=== PATIENT | male | born 1985 | race Caucasian/White ===

== ENCOUNTER → 2016-04-22 | Outpatient (CLI) | payer BC ==
--- NOTE | 2016-04-22 10:45 | DIAGNOSTIC IMAGING REPORT ---
RENAL ULTRASOUND HISTORY: Flank pain HEMATURIA COMPARISON: None. FINDINGS: Right kidney: Maximum dimension 11.1 cm. Normal corticomedullary differentiation and cortical thickness. Left kidney: Maximum dimension 12.3 cm. Normal corticomedullary differentiation and cortical thickness. Bladder: No bladder wall thickening. The bilateral ureteral jets were identified. IMPRESSION: Normal renal ultrasound. Electronically signed by: Teo Terrell M.D. 04/22/2016 10:43 AM Dictated Date/Time: 04/22/2016 10:43 AM
== END | disposition home or self-care (01) ==
LOC: C.ULTR 09:28
PROVIDERS: ATTEND Family Medicine
DX: R31.21 Asymptomatic microscopic hematuria (principal)

== ENCOUNTER 2016-07-20 16:39 | Emergency (ER) | payer BC ==
[~2016-07-20] VITALS: Ht 175.3 cm; Wt 111.4 kg
[2016-07-20 16:44] VITALS: TEMP 36.6; Ht 175.3 cm; Wt 111.4 kg
--- NOTE | 2016-07-20 19:36 | DIAGNOSTIC IMAGING REPORT ---
RIGHT LOWER EXTREMITY VENOUS DOPPLER HISTORY: R calf pain; pt concerned for DVT due to family hx Right COMPARISON STUDY: None. FINDINGS: There is normal compressibility, flow, and augmentation within the right lower extremity deep venous system. IMPRESSION: No DVT within the right lower extremity Electronically signed by: Garrison Woodall M.D. 07/20/2016 7:35 PM Dictated Date/Time: 07/20/2016 7:34 PM
[2016-07-20 19:51] VITALS: BP 139/81; PULSE 74; O2SAT 97
--- NOTE | 2016-07-21 11:00 | EMERGENCY ROOM VISIT NOTE ---
ED Visit Note First contact with patient: 16:50 Chief Complaint: Right calf pain. History of Present Illness: Mr. Long is a 31-year-old white male who ambulates into the ED complaining of right calf pain. Patient reports yesterday he was walking and developed calf pain over the lateral aspect of the gastrocnemius near the insertion of the Achilles tendon. He noted this most prominently while climbing a hill. When he went home he reports the pain resolved. When he was at home this morning playing using his computer the pain returned. He attempted to go out for walk and the pain became severe. Currently he describes his pain as a sharp sensation. He rates his discomfort 6 /10. The pain is nonradiating. The pain worsens with palpation and ambulation. He has not identified any alleviating factors related to the pain. He has not taken any medications for pain prior to arrival at the hospital. He denies any associated fevers, chills, sweats, trauma to this area, recent surgery/inactivity/extended travel, previous clots, claudication, chest pain, palpitations, shortness of breath. He does report that he has multiple family members that have DVTs and expresses concerns about a DVT. Review of Systems: As noted above in history of present illness. 8 body systems were reviewed and found to be negative as noted above. Past Medical History: Patient denies. Current Medications: Patient denies. Allergies to Medications: Patient denies. Social History: Patient is currently employed; he feels safe in his home environment; he denies tobacco use; he admits to alcohol use. Physical Examination: Vital Signs: Date Time Temp Pulse Resp B/P Pulse Ox O2 Delivery O2 Flow Rate FiO2 07/20/16 19:51 74 20 139/81 97 Room Air 07/20/16 19:00 81 18 138/79 96 Room Air 07/20/16 16:44 36.6 78 20 147/89 94 Room Air GENERAL: 31-year-old male in mild distress due to pain, nontoxic-appearing, afebrile and hemodynamically stable. NEUROLOGICAL: Awake, alert and oriented to person, place and time. Answering questions appropriately and following commands. Normal gait. Good hand eye coordination. No focal motor sensory deficits. SKIN: Warm, dry and pink. No soft tissue eruptions or trauma noted. THORAX: Lungs sounds are clear to auscultation and equal bilaterally with symmetrical chest wall. No crepitus, tenderness, subcutaneous air or deformities noted. HEART: Regular rate and rhythm. No gallops, rubs or murmurs are appreciated. ABDOMEN: Flat, soft and nontender. Positive bowel sounds in all quadrants. No guarding, rigidity or organomegaly. RIGHT LOWER EXTREMITY: No gross bony deformity. No tenderness in the hip, knee , ankle or foot. Mild tenderness over the lateral aspect of the gastrocnemius without swelling, erythema or ecchymosis. Full range of motion in all movements of the knee and ankle. Throughout the extremity the skin was warm and pink and capillary refill was brisk. No palpable cords. ED Course: Patient is assessed as noted above. Patient was offered pain medication and refused. Right Lower Extremity Venous Doppler Ultrasound: Was reviewed by myself and the radiologist showing no DVT within the right lower extremity. Patient was educated about tonight's findings and instructed on his treatment plan; he verbalized understanding and agreement with this plan. Clinical Impression: Right calf pain. Decision-Making: Muscle strain, Achilles tendinitis, DVT, contusion and other causes. Disposition: Patient discharged home in stable condition; prior to departure he was reassessed and subjectively reported he was feeling better and rated his discomfort 4/10. Plan: Comfort measures were discussed with the patient. Patient was encouraged to follow-up with his PCP for recheck in 3-6 days if no better. Patient was encouraged return the ED for worsening/uncontrolled pain, uncontrolled cramping, calf swelling/redness, ankle/foot weakness/numbness/ tingling or any new/concerning symptoms.
== END 2016-07-20 19:55 | disposition home or self-care (01) ==
LOC: C.EDB 16:40 → C.EDD 19:55
DX: M79.661 Pain in right lower leg (principal)